=== PATIENT | female | born 1995 | race Caucasian/White ===

== ENCOUNTER 2019-06-06 15:33 | Emergency (ER) | payer MEDICAID ==
[~2019-06-06] VITALS: Ht 162.6 cm; Wt 67.0 kg
[2019-06-06 15:37] VITALS: BP 121/81
[2019-06-06] MEDS ORDERED: ONDA4TAB6 PO (15:41)
[2019-06-06] MEDS ORDERED: AMOX500C2 PO (15:41)
[2019-06-06] MEDS ORDERED: HYDR-3965 PO (15:41)
--- NOTE | 2019-06-06 15:45 | NUR ---
seen and evaluated, discharged by Dr Acevedo without nursing interventions.
== END 2019-06-06 15:46 | disposition home or self-care (01) ==
LOC: ER 15:34
DX: K08.89 Other specified disorders of teeth and supporting structures (principal); Z79.899 Other long term (current) drug therapy
CPT/HCPCS: 99283

== ENCOUNTER 2019-06-07 22:53 | Emergency (ER) | payer MEDICAID ==
[~2019-06-07] VITALS: Ht 162.6 cm; Wt 68.2 kg
[~2019-06-07 22:53] MED LIST: AMOX500C2 PO; HYDR-3965 PO; ONDA4TAB6 PO
[2019-06-07] MEDS ORDERED: normal saline 1000ML IV soln IV ONE (23:45)
[2019-06-07] MEDS ORDERED: dexamethasone 4mg tablet PO ONE (23:50)
[2019-06-08 00:16] LABS: BASOPHILS # (AUTO) 0.1 X10'3 (0-0.2); BASOPHILS % (AUTO) 0.8 % (0-1); EOSINOPHILS % (AUTO) 0 % (0-6); HEMOGLOBIN 12.2 g/dl (12.0-16.0); LYMPHOCYTES # (AUTO) 0.9 X10'3 (1.1-4.8); LYMPHOCYTES % (AUTO) 10.1 % (21-51); MEAN CORPUSCULAR HEMOGLOBIN 25.7 PG (27.0-31.0); MEAN CORPUSCULAR HGB CONC 32.9 g/dL (33.0-36.5); MEAN CORPUSCULAR VOLUME 78.1 FL (78-98); MEAN PLATELET VOLUME 9.2 FL (7.4-10.4); MONOCYTES # (AUTO) 1.3 X10'3 (0-0.9); MONOCYTES % (AUTO) 13.9 % (2-12); NEUTROPHILS # (AUTO) 6.8 X10'3 (1.8-7.7); NEUTROPHILS % (AUTO) 75.2 % (42-75); PLATELET COUNT 265 X10'3 (140-440); RED BLOOD COUNT 4.74 X10'6 (4.20-5.60); RED CELL DISTRIBUTION WIDTH 14.7 % (11.5-14.5); WHITE BLOOD COUNT 9.1 X10'3 (4.5-11.0)
[2019-06-08 00:28] LABS: ALANINE AMINOTRANSFERASE 18 U/L (12-78); ALKALINE PHOSPHATASE 56 IU/L (46-116); ANION GAP 6 (8-16); ASPARTATE AMINO TRANSFERASE 14 U/L (10-37); BILIRUBIN,TOTAL 0.6 MG/DL (0.1-1.0); BLOOD UREA NITROGEN 6 MG/DL (7-18); BUN/CREATININE RATIO 7.7 (6.6-38.0); CALCIUM 8.8 MG/DL (8.5-10.1); CHLORIDE 102 MMOL/L (99-107); CREATININE 0.78 MG/DL (0.40-0.90); GLUCOSE 116 MG/DL (70-104); POTASSIUM 3.5 MMOL/L (3.5-5.1); SODIUM 136 MMOL/L (135-145); TOTAL CARBON DIOXIDE 27.6 MMOL/L (24-32); TOTAL PROTEIN 8.1 G/DL (6.4-8.2); eGFR > 90 ML/MIN
[2019-06-08] MEDS ORDERED: CLIN300C17 PO (00:32)
[2019-06-08] MEDS ORDERED: IBUP-1984 PO (00:32)
[2019-06-08 00:59] VITALS: BP 97/65
[2019-06-08] MEDS ORDERED: clindamycin 300mg/D5W 50mL 50 ML IV SCH (23:47)
== END 2019-06-08 01:02 | disposition home or self-care (01) ==
LOC: ER 22:53
DX: L03.211 Cellulitis of face (principal)
CPT/HCPCS: 36415; 80053; 85025; 96365; 99283; J7030; J3490

== ENCOUNTER 2019-07-13 08:50 | Day surgery (SDC) | payer MEDICAID ==
[2019-07-10 11:39] LABS: BASOPHILS # (AUTO) 0.1 X10'3 (0-0.2); EOSINOPHILS # (AUTO) 0.2 X10'3 (0-0.9); EOSINOPHILS % (AUTO) 3.2 % (0-6); LYMPHOCYTES # (AUTO) 1.6 X10'3 (1.1-4.8); LYMPHOCYTES % (AUTO) 32.7 % (21-51); MEAN CORPUSCULAR HEMOGLOBIN 25.6 PG (27.0-31.0); MEAN CORPUSCULAR HGB CONC 33.1 g/dL (33.0-36.5); MEAN CORPUSCULAR VOLUME 77.4 FL (78-98); MEAN PLATELET VOLUME 9.1 FL (7.4-10.4); MONOCYTES # (AUTO) 0.5 X10'3 (0-0.9); MONOCYTES % (AUTO) 10.9 % (2-12); NEUTROPHILS # (AUTO) 2.5 X10'3 (1.8-7.7); NEUTROPHILS % (AUTO) 50.2 % (42-75); PRE OP HEMATOCRIT 39.4 % (35.0-45.0); PRE OP PLATELET COUNT 288 X10'3 (140-440); RED BLOOD COUNT 5.09 X10'6 (4.20-5.60); RED CELL DISTRIBUTION WIDTH 15.7 % (11.5-14.5)
[2019-07-10 11:50] LABS: ALBUMIN 4.5 G/DL (3.4-5.0); ALBUMIN/GLOBULIN RATIO 1.3 (1.1-1.5); ALKALINE PHOSPHATASE 48 IU/L (46-116); BLOOD UREA NITROGEN 9 MG/DL (7-18); BUN/CREATININE RATIO 11.4 (6.6-38.0); CALCIUM 8.9 MG/DL (8.5-10.1); CHLORIDE 104 MMOL/L (99-107); CREATININE 0.79 MG/DL (0.40-0.90); PRE OP ALT 25 U/L (30-65); PRE OP ANION GAP 9 (8-16); PRE OP AST 16 U/L (10-37); PRE OP BILIRUB, TOTAL 0.5 MG/DL (0.0-1.0); PRE OP GLUCOSE 87 MG/DL (70-104); PRE OP POTASSIUM 3.8 MMOL/L (3.4-5.1); PRE OP SODIUM 138 MMOL/L (135-145); TOTAL CARBON DIOXIDE 24.7 MMOL/L (24-32); TOTAL PROTEIN 8.1 G/DL (6.4-8.2); eGFR > 90 ML/MIN
[2019-07-10 11:54] LABS: HCG SERUM QL NEGATIVE
[2019-07-10 12:05] LABS: CLARITY,URINE CLOUDY (Clear); GLUCOSE, URINE NEGATIVE (Neg); KETONES,URINE NEGATIVE (Neg); LEUKOCYTE ESTERASE ,URINE NEGATIVE (Neg); NITRITES, URINE NEGATIVE (Neg); OCCULT BLOOD,URINE LARGE (Neg); PROTEIN,URINE NEGATIVE (Neg); UROBILINOGEN,URINE 0.2 E.U/dL (0.2-1.0)
[2019-07-10 12:18] LABS: UA COLLECTION TYPE CLN CATCH MIDSTREAM
[2019-07-10 12:19] LABS: PRE OP INR 1.1 INR; PRE OP PROTIME 11.4 SECONDS (9.0-12.0)
[2019-07-10 12:19] LABS: COLOR,URINE AMBER (Yellow)
[2019-07-10 12:21] LABS: MUCUS STRANDS FEW /LPF (Neg); RBC,URINE TNTC /HPF (0-2); SQUAMOUS EPITHELIAL CELL,UR FEW /LPF (FEW); TRANSITIONAL EPI CELLS,URINE FEW /HPF
[2019-07-10 12:22] LABS: BACTERIA,URINE NONE SEEN /HPF (Neg); WBC,URINE 0-4 /HPF (0-4)
[~2019-07-13] VITALS: Ht 165.1 cm; Wt 66.0 kg
[2019-07-13] VITALS (13 sets, daily range): BP systolic 92–123; BP diastolic 33–94
[~2019-07-13 08:50] MED LIST changes: -AMOX500C2 PO; -HYDR-3965 PO; +NO HOME MEDS; -ONDA4TAB6 PO; +ceFOXitin 2 GM ADDVANTGE BAG 50 ML IV ONE; +famotidine 10mg tablet PO ONE; +ringers solution, lacted 1,000 ML IV SCH
[2019-07-13] MEDS ORDERED: BUPIVAcaine/PF 2.5 mg/ml (0.25%) 30ml vial ONE (11:59)
[2019-07-13] MEDS ORDERED: BUPIVAcaine/PF 2.5mg/ml (0.25%) 10ml vial ONE (11:59)
[2019-07-13] MEDS ORDERED: neostigmine methylsulfate 1 MG/ML 10ml vial ONE (12:01)
[2019-07-13] MEDS ORDERED: acetaminophen 1000 MG/100ml vial IV ONE (12:01)
[2019-07-13] MEDS ORDERED: sevoflurane 250ml liquid IH ONE (12:01)
[2019-07-13] MEDS ORDERED: glycopyrrolate 0.2mg/ml inj ONE (12:01)
[2019-07-13] MEDS ORDERED: fentaNYL/PF 50MCG/1 ML 2ML syringe ONE (12:04)
[2019-07-13] MEDS ORDERED: midazolam 2 mg/2 ml injection ONE ×2 (12:05)
[2019-07-13] MEDS ORDERED: ringers solution, lacted 1,000 ML IV SCH (12:57)
[2019-07-13] MEDS ORDERED: ondansetron/PF 4mg/2ml inj IV PRN (13:00)
[2019-07-13] MEDS ORDERED: proCHLORperazine 10 MG/2 ml inj IV PRN (13:00)
[2019-07-13] MEDS ORDERED: morphine 4 MG/ML inj SYRINge IV PRN ×2 (13:00)
[2019-07-13] MEDS ORDERED: meperidine/PF 25mg/ml syringe IV PRN ×2 (13:00)
[2019-07-13] MEDS ORDERED: propofol inj 20 ML IV ONE (13:26)
[2019-07-13] MEDS ORDERED: rocuronium 10mg/ml inj IV ONE (13:26)
[2019-07-13] MEDS ORDERED: dexamethasone sod phosphate 4mg/ml inj. ONE (13:26)
[2019-07-13] MEDS ORDERED: ondansetron/PF 4mg/2ml inj ONE (13:27)
--- NOTE | 2019-07-13 14:00 | NUR ---
Received from OR via BED, accompanied by Anesthesiologist DR NORRIS-- and report given by Anesthesiolgist. PATIENT A&OX4, DENIES PAIN, V/S WNL, NEUROVASCULAR CHECKS INTACT, 20G PIV RUE, SCD ON, LAP SITES TO ABDOMEN CDI AND MARIBELL PAD WITH SCANT DRAINAGE
[2019-07-13] MEDS: meperidine/PF 25mg/ml syringe IV PRN ×2 (14:15→14:46)
[2019-07-13] MEDS ORDERED: ketorolac trometh. 30mg/ml inj. IV ONE (14:15)
--- NOTE | 2019-07-13 16:51 | NUR ---
PATIENT SAY KERRI, BLADDER SCAN WAS +300CC URINE. I WILL WAIT AND LET HER TRY ONE MORE TIME IN 20 MIN THEN CALL FOR FURTHER ORDERS IF SHE IS UNSUCESSFULL
--- NOTE | 2019-07-13 17:10 | NUR ---
PATIENT A&OX4, DENIES PAIN, V/S WNL, NEUROVASCULAR CHECKS INTACT, 20G PIV RUE D/C, SCD OFF, LAP SITES TO ABDOMEN CDI AND MARIBELL PAD WITH SCANT DRAINAGE. PATIENT HAS [facility] FOR HOME AND HAS VOIDED AND AMBULATED SEVERAL TIMES NOW. I HAVE REVIEWED D/C INSTRUCTIONS WITH PATIENT AND FAMILY AND THEY HAVE VERBALIZED UNDERSTANDING. PATIENT D/C HOME WITH ALL BELONGINGS AND FAMILY GAVE TRANSPORT HOME.
== END 2019-07-13 17:10 | disposition home or self-care (01) ==
LOC: PAS 08:50
PROVIDERS: ATTEND Obstetrics & Gynecology
DX: F64.0 Transsexualism (principal); K21.9 Gastro-esophageal reflux disease without esophagitis; Z98.890 Other specified postprocedural states; Z79.899 Other long term (current) drug therapy; Z79.01 Long term (current) use of anticoagulants
CPT/HCPCS: 36415; 58571; 80053; 81001; 82948; 84703; 85025; 85610; 85730; 86885; 86900; 86901; C1758; J0131; J0694; J1100; J1885; J2175; J2250; J2405; J2704; J2710; J3010; J3490; J7120; S2900; A4618; A7000

== ENCOUNTER 2023-02-05 00:55 | Emergency (ER) | payer MEDICAID ==
[~2023-02-05] VITALS: Ht 163.8 cm; Wt 67.6 kg
[~2023-02-05 00:55] MED LIST changes: -ceFOXitin 2 GM ADDVANTGE BAG 50 ML IV ONE; -famotidine 10mg tablet PO ONE; -ringers solution, lacted 1,000 ML IV SCH
[2023-02-05 01:15] VITALS: BP 112/80
== END 2023-02-05 01:46 | disposition home or self-care (01) ==
LOC: ER 00:56
DX: J02.9 Acute pharyngitis, unspecified (principal); H10.022 Other mucopurulent conjunctivitis, left eye
CPT/HCPCS: 87081; 87880; 99283

== ENCOUNTER 2023-11-03 23:43 | Emergency (ER) | payer MEDICAID ==
[~2023-11-03] VITALS: Ht 162.6 cm; Wt 77.3 kg
[~2023-11-03 23:43] MED LIST changes: +ONDA8TAB13 PO
[2023-11-04 04:02] VITALS: BP 118/72; PULSE 70; RESP 16; TEMP 97.8; O2SAT 99
== END 2023-11-04 04:04 | disposition home or self-care (01) ==
LOC: ER 23:43
DX: R07.89 Other chest pain (principal); Z79.899 Other long term (current) drug therapy; Z90.710 Acquired absence of both cervix and uterus
CPT/HCPCS: 71045; 93005; 99283